=== PATIENT | female | born 1960 | race Caucasian/White ===

== ENCOUNTER 2021-03-15 14:03 | Emergency (ER) | payer BC ==
[~2021-03-15] VITALS: Ht 165.1 cm; Wt 81.6 kg
[2021-03-15 14:12] VITALS: BP 165/81
--- NOTE | 2021-03-15 14:21 | NUR ---
ARRIVAL PATIENT ARRIVED TO ED4 VIA W/C, C/O DIZZINESS AND NAUSEA, STATES SHE FEELS LIKE SHE IS ABOUT TO PASS OUT, DID EAT SOME ONIONS TODAY WHICH SHE HAS AN ALLERGY TO, WAS BROUGHT TO THE ED FOR EVAL, VITAL SIGNS OBTAINED AND DOCTOR NOTIFIED OF PATIENT'S ARRIVAL.
[2021-03-15] MEDS ORDERED: NS 1000ML 1,000 ML STA (14:23)
[2021-03-15] MEDS ORDERED: ZOFRAN ONE (14:37)
[2021-03-15] MEDS ORDERED: NS 1000ML 1,000 ML ONE (14:37)
[2021-03-15 14:43] LABS: BASOPHIL # 0.1 10^3/uL (0.0-0.1); EOSINOPHIL # 0.2 10^3/uL (0.0-0.2); LYMPHOCYTES # 2.67 10^3/uL1 (1.0-4.8); LYMPHOCYTES % 36.8 % (24.0-44.0); MEAN CORP HGB 29.3 pg (26-34); MONOCYTES # 0.5 10^3/uL (0.3-0.8); MONOCYTES % 6.2 % (5.0-12.0); NEUTROPHIL # 3.8 10^3/uL (1.8-7.7); NEUTROPHILS % 52.9 % (41.0-85.0); PLATELET COUNT 294 10^3/uL (150-400); RED CELL DISTRIBUTION WIDTH 13.2 % (11.5-14.5)
[2021-03-15] MEDS ORDERED: ZOFRAN IV PRN (15:00)
[2021-03-15 15:01] VITALS: BP 172/91
[2021-03-15 15:05] LABS: ALANINE AMINOTRANSFERASE(ML) 39 U/L (12-78); ALKALINE PHOSPHATASE 80 U/L (50-136); ASPARTATE AMINO TRANSFERASE 18 U/L (0-35); CALCIUM 9.4 mg/dL (8.4-10.5); CARBON DIOXIDE 26.9 mmol/L (20.0-32); GLUCOSE 117 mg/dL (70-110)
--- NOTE | 2021-03-15 15:32 | ER.PDOC ---
General Chief Complaint: General Complaint Stated Complaint: DIZZY/WEAK TRAVEL OUT OF US: No Time seen by MD: 14:10 Source: patient Exam Limitations: no limitations History of Present Illness Initial Comments 60 Y F had a near syncope episode while seated, no CP or palpitations during episode, she did feel cold and nauseous, no recent illness, has never happened before, feels better now but slightly nauseous Allergies: Coded Allergies: Penicillins (Verified Allergy, Unknown, ., 03/15/21) Sulfa (Sulfonamide Antibiotics) (Verified Allergy, Unknown, ., 03/15/21) adhesive tape (Verified Allergy, Unknown, 03/15/21) aspirin (Verified Allergy, Unknown, 03/15/21) butorphanol (Verified Allergy, Unknown, 03/15/21) codeine (Verified Allergy, Unknown, 03/15/21) cyclobenzaprine (Verified Allergy, Unknown, 03/15/21) divalproex sodium (Verified Allergy, Unknown, 03/15/21) hydrocodone (Verified Allergy, Unknown, 03/15/21) hydromorphone (Verified Allergy, Unknown, 03/15/21) iodine (Verified Allergy, Unknown, 03/15/21) latex (Verified Allergy, Unknown, 03/15/21) meperidine (Verified Allergy, Unknown, 03/15/21) morphine (Verified Allergy, Unknown, 03/15/21) nalbuphine (Verified Allergy, Unknown, 03/15/21) onion (Verified Allergy, Unknown, 03/15/21) shrimp (Verified Allergy, Unknown, 03/15/21) strawberry (Verified Allergy, Unknown, 03/15/21) Uncoded Allergies: BAND AIDS (Allergy, Unknown, ., 03/15/21) Past Medical History Medical History: no pertinent history Surgical History: bladder suspension, cholecystectomy, hysterectomy, tonsillectomy Social History Alcohol Use: none Drug Use: none Review of Systems All Other Systems: Reviewed and Negative Physical Exam General Appearance: No Apparent Distress EENT: nml ENT inspection, other (dry oral mucosa) Respiratory: no respiratory distress CVS: reg rate & rhythm Gastrointestinal: Soft Back: Normal Inspection Extremities: Normal Inspection Neurologic/Psychiatric: No Motor/Sensory Deficits Skin: Normal Color Lymphatic: No Adenopathy Results/Orders Results/Orders Orders - REBECCA BOSE MD Cbc With Auto Diff (03/15/21 14:23) Comprehensive Metabolic Panel (03/15/21 14:23) Troponin I (03/15/21 14:23) PT (03/15/21 14:23) 0.9 % Sodium Chloride (Ns 1000ml) (03/15/21 14:23) Ondansetron Hcl/Pf (Zofran) (03/15/21 15:00) 0.9 % Sodium Chloride (Ns 1000ml) (03/15/21 14:37) Ondansetron Hcl/Pf (Zofran) (03/15/21 14:37) Vital Signs Date Time Temp Pulse Resp B/P (MAP) Pulse Ox O2 Delivery O2 Flow Rate FiO2 03/15/21 15:01 97.9 77 18 172/91 (118) 99 Room Air 03/15/21 14:12 97.9 75 18 03/15/21 14:12 97.9 75 18 165/81 (109) 99 Room Air 03/15/21 14:12 97.9 75 18 99 Administered Medications Medications (Trade) Dose Ordered Sig/Vale Route PRN Reason Start Time Stop Time Status Last Admin Dose Admin Ondansetron HCl (Zofran) 4 mg Q4H PRN IV NAUSEA / VOMITING 03/15/21 15:00 04/14/21 14:59 03/15/21 14:41 4 MG Sodium Chloride 1,000 ml @ 0 mls/hr Q0M STAT IV 03/15/21 14:23 03/15/21 14:25 DC 03/15/21 14:41 1,200 MLS/HR Laboratory Tests Test 03/15/21 14:38 White Blood Count 7.3 10^3/uL (4.5-11.0) Red Blood Count 4.92 10^6/uL (4.00-5.20) Hemoglobin 14.4 g/dL (12.0-15.0) Hematocrit 43.6 % (36.0-46.0) Mean Corpuscular Volume 88.6 fL (78-100) Mean Corpuscular Hemoglobin 29.3 pg (26-34) Mean Corpuscular Hemoglobin Concent 33.0 g/dL (33-36.5) Red Cell Distribution Width 13.2 % (11.5-14.5) Platelet Count 294 10^3/uL (150-400) Mean Platelet Volume 9.8 fL (7.8-11.0) Neutrophils (%) (Auto) 52.9 % (41.0-85.0) Lymphocytes (%) (Auto) 36.8 % (24.0-44.0) Monocytes (%) (Auto) 6.2 % (5.0-12.0) Neutrophils # (Auto) 3.8 10^3/uL (1.8-7.7) Lymphocytes # (Auto) 2.67 10^3/uL1 (1.0-4.8) Monocytes # (Auto) 0.5 10^3/uL (0.3-0.8) Absolute Immature Granulocyte (auto 0.01 10^3 u/L (0-2) Absolute Eosinophils (auto) 0.2 10^3/uL (0.0-0.2) Immature Granulocytes % 0.10 % (0.00-0.50) Eosinophils % 3.0 % (0.0-5.0) Basophils % 1.0 % (0.0-0.2) H Basophils # 0.1 10^3/uL (0.0-0.1) Prothrombin Time 10.2 SEC (9.6-12.0) Prothrombin Time INR (Non-Therap) 0.9 Sodium Level 139 mmol/L (132-145) Potassium Level 3.4 mmol/L (3.6-5.2) L Chloride Level 102.0 mmol/L (96-109) Carbon Dioxide Level 26.9 mmol/L (20.0-32) Anion Gap 13.5 Blood Urea Nitrogen 19 mg/dL (7-18) H Creatinine 1.06 mg/dL (0.59-1.40) Estimated GFR () 63.6 (>/=60) Est GFR (CKD-EPI)(Non-Afr [place]) 52.5 (>/=60) BUN/Creatinine Ratio 17.0 Glucose Level 117 mg/dL (70-110) H Calcium Level 9.4 mg/dL (8.4-10.5) Total Bilirubin 0.5 mg/dL (0.2-1.0) Aspartate Amino Transferase (AST) 18 U/L (0-35) Alanine Aminotransferase (ALT) 39 U/L (12-78) Alkaline Phosphatase 80 U/L (50-136) Troponin I < 0.02 ng/mL (0.00-0.05) Total Protein 8.0 g/dL (6.4-8.2) Albumin 4.6 g/dL (3.4-5.0) Globulin 3.4 Albumin/Globulin Ratio 1.352 ER DEPART Departure Time of Disposition: 15:31 Disposition: 01 HOME / SELF CARE / HOMELESS Impression: Primary Impression: Near syncope Condition: Improved Referrals: AUTUMN FUENTES SENIOR CONSTRUCTION ESTIMATOR (PCP) PRIMARY CARE PROVIDER Duration or Time Spent with Pa: Alexm REBECCA BOSE MD Mar 15, 2021 15:32
[2021-03-15 15:38] VITALS: BP 172/91
== END 2021-03-15 15:43 | disposition home or self-care (01) ==
LOC: ER 14:03
DX: R55 Syncope and collapse (principal); Z79.899 Other long term (current) drug therapy; Z88.0 Allergy status to penicillin; Z88.2 Allergy status to sulfonamides; Z88.5 Allergy status to narcotic agent; Z88.6 Allergy status to analgesic agent; Z88.8 Allergy status to other drugs, medicaments and biological substances; Z90.49 Acquired absence of other specified parts of digestive tract; Z90.710 Acquired absence of both cervix and uterus
CPT/HCPCS: 36415; 80053; 84484; 85025; 85610; 96361; 96374; 99284; J2405; J7030

== ENCOUNTER 2022-10-29 08:06 | Emergency (ER) | payer BC ==
[~2022-10-29] VITALS: Ht 165.1 cm; Wt 83.9 kg
[2022-10-29 08:06] VITALS: BP 191/106
--- NOTE | 2022-10-29 08:06 | NUR ---
ARRIVAL PATIENT ARRIVED TO ED4 VIA W/C, C/O POSSIBLE HYPERTENSION TODAY, PATIENT STATES SHE HAS NOT FELT GOOD SINCE GETTING UP THIS MORNING, HAD HER BLOOD PRESSURE CHECKED BY ICU STAFF AND IT WAS INCREASED, WAS BROUGHT TO THE ED FOR EVAL, VITAL SIGNS TAKEN AND DOCTOR TO THE ROOM TO SEE PATIENT.
--- NOTE | 2022-10-29 08:33 | ER.PDOC ---
General Chief Complaint: General Complaint Stated Complaint: HIGH BP TRAVEL OUT OF US: No Time seen by MD: 08:32 Source: patient Exam Limitations: no limitations History of Present Illness Initial Comments High blood pressure and dizziness this morning. No chest pain or shortness of breath. She is also having exacerbation of her chronic neck pain. Severity: moderate Associated Symptoms: denies symptoms Allergies: Coded Allergies: Penicillins (Verified Allergy, Unknown, ., 03/15/21) Sulfa (Sulfonamide Antibiotics) (Verified Allergy, Unknown, ., 03/15/21) adhesive tape (Verified Allergy, Unknown, 03/15/21) aspirin (Verified Allergy, Unknown, 03/15/21) butorphanol (Verified Allergy, Unknown, 03/15/21) codeine (Verified Allergy, Unknown, 03/15/21) cyclobenzaprine (Verified Allergy, Unknown, 03/15/21) divalproex sodium (Verified Allergy, Unknown, 03/15/21) hydrocodone (Verified Allergy, Unknown, 03/15/21) hydromorphone (Verified Allergy, Unknown, 03/15/21) iodine (Verified Allergy, Unknown, 03/15/21) latex (Verified Allergy, Unknown, 03/15/21) meperidine (Verified Allergy, Unknown, 03/15/21) morphine (Verified Allergy, Unknown, 03/15/21) nalbuphine (Verified Allergy, Unknown, 03/15/21) onion (Verified Allergy, Unknown, 03/15/21) shrimp (Verified Allergy, Unknown, 03/15/21) strawberry (Verified Allergy, Unknown, 03/15/21) Uncoded Allergies: BAND AIDS (Allergy, Unknown, ., 03/15/21) Past Medical History Medical History: no pertinent history Surgical History: appendectomy, bladder suspension, cholecystectomy, , hysterectomy, other Family History Significant Family History: no pertinent family hx Social History Smoking: non-smoker Alcohol Use: occassionally Drug Use: none Review of Systems Constitutional: no symptoms reported EENTM: see HPI Respiratory: no symptoms reported Cardiovascular: see HPI Gastrointestinal: no symptoms reported Musculoskeletal: see HPI All Other Systems: Reviewed and Negative Physical Exam General Appearance: No Apparent Distress, WD/WN Neck: Supple, Normal Inspection, Other (Paraspinous muscle tenderness) Respiratory: chest non-tender, lungs clear, normal breath sounds, no respirator y distress, no accessory muscle use CVS: reg rate & rhythm, no murmur, no gallop, pulses nml, nml capillary refill Gastrointestinal: Normal Bowel Sounds, No Organomegaly, No Pulsatile Mass, Non Tender Back: Normal Inspection, No CVA Tenderness Extremities: Normal Range of Motion, Non-Tender, Normal Inspection, No Pedal Edema Neurologic/Psychiatric: gynaecological oncologist II-XII NML as Tested, No Motor/Sensory Deficits, Alert, Normal Mood/Affect, Oriented x 3 Skin: Normal Color Lymphatic: No Adenopathy Results/Orders Results/Orders Orders - EMILEE NELSON MD Cbc With Auto Diff (10/29/22 08:28) Comprehensive Metabolic Panel (10/29/22 08:28) Xr Chest 1v (10/29/22 08:28) Ct Head Wo Contrast (10/29/22 08:28) Urinalysis (10/29/22 08:28) EKG (10/29/22 08:28) Troponin I High Sensitivity (10/29/22 08:28) Ketorolac Tromethamine (Toradol) (10/29/22 08:56) Ketorolac Tromethamine (Toradol) (10/29/22 08:56) Vital Signs Date Time Temp Pulse Resp B/P (MAP) Pulse Ox O2 Delivery O2 Flow Rate FiO2 10/29/22 09:48 97.9 78 18 145/88 (107) 95 Room Air* 0 21 10/29/22 08:59 97.9 78 18 165/96 (119) 95 Room Air* 0 21 10/29/22 08:06 97.9 77 18 10/29/22 08:06 97.9 77 18 191/106 (134) 95 Room Air* 0 21 10/29/22 08:06 97.9 77 18 95 Administered Medications Medications (Trade) Dose Ordered Sig/Vale Route PRN Reason Start Time Stop Time Status Last Admin Dose Admin Ketorolac Tromethamine (Toradol) 30 mg STAT STAT IV 10/29/22 08:56 10/29/22 08:57 DC 10/29/22 09:02 30 MG Laboratory Tests Test 10/29/22 08:15 10/29/22 08:49 Urine Collection Type RANDOM Urine Color YELLOW Urine Appearance CLEAR Urine Bilirubin NEGATIVE (NEGATIVE) Urine Ketones NEGATIVE (NEGATIVE) Urine Specific [place] 1.015 (1.005-1.030) Urine pH 7.0 (4.5-8.0) Urine Protein NEGATIVE (NEGATIVE) Urine Urobilinogen 0.2 E.U./dL (0.2) Urine Nitrate NEGATIVE (NEGATIVE) Urine Leukocyte Esterase NEGATIVE (NEGATIVE) Urine Glucose (Auto)(UA) NEGATIVE (NEGATIVE) Urine Blood NEGATIVE (NEGATIVE) White Blood Count 6.4 10^3/uL (4.5-11.0) Red Blood Count 5.06 10^6/uL (4.00-5.20) Hemoglobin 15.0 g/dL (12.0-15.0) Hematocrit 45.0 % (36.0-46.0) Mean Corpuscular Volume 88.9 fL (78-100) Mean Corpuscular Hemoglobin 29.6 pg (26-34) Mean Corpuscular Hemoglobin Concent 33.3 g/dL (33-36.5) Red Cell Distribution Width 13.3 % (11.5-14.5) Platelet Count 290 10^3/uL (150-400) Mean Platelet Volume 10.0 fL (7.8-11.0) Neutrophils (%) (Auto) 64.4 % (41.0-85.0) Lymphocytes (%) (Auto) 26.1 % (24.0-44.0) Monocytes (%) (Auto) 6.3 % (5.0-12.0) Neutrophils # (Auto) 4.1 10^3/uL (1.8-7.7) Lymphocytes # (Auto) 1.67 10^3/uL1 (1.0-4.8) Monocytes # (Auto) 0.4 10^3/uL (0.3-0.8) Absolute Immature Granulocyte (auto 0.01 10^3 u/L (0-2) Absolute Eosinophils (auto) 0.2 10^3/uL (0.0-0.2) Immature Granulocytes % 0.20 % (0.00-0.50) Eosinophils % 2.7 % (0.0-5.0) Basophils % 0.3 % (0.0-0.2) H Basophils # 0.0 10^3/uL (0.0-0.1) Sodium Level 142 mmol/L (132-145) Potassium Level 4.4 mmol/L (3.6-5.2) Chloride Level 104.0 mmol/L (96-109) Carbon Dioxide Level 26.3 mmol/L (20.0-32) Anion Gap 16.1 Blood Urea Nitrogen 10 mg/dL (7-18) Creatinine 0.99 mg/dL (0.59-1.40) Estimated GFR () 68.3 (>/=60) Est GFR (CKD-EPI)(Non-Afr [place]an) 56.5 (>/=60) BUN/Creatinine Ratio 10.0 (10.0-20.0) Glucose Level 162 mg/dL (70-110) H Calcium Level 9.3 mg/dL (8.4-10.5) Total Bilirubin 0.5 mg/dL (0.2-1.0) Aspartate Amino Transferase (AST) 27 U/L (0-35) Alanine Aminotransferase (ALT) 41 U/L (12-78) Alkaline Phosphatase 81 U/L (50-136) Troponin I High Sensitivity < 4 ng/L (0-50) Total Protein 7.3 g/dL (6.4-8.2) Albumin 4.3 g/dL (3.4-5.0) Globulin 3.0 Albumin/Globulin Ratio 1.[address] head: No acute intracranial abnormality Chest x-ray: Nothing acute CBC and chemistry are unremarkable. Troponin is normal. Patient received Toradol for her chronic neck pain. Her blood pressure significantly improved up to 140s systolic. She is feeling better to go home. EKG/XRAY/CT/US EKG: NSR EKG Comments: HR 68, normal P axis ER DEPART Departure Time of Disposition: 10:02 Disposition: 01 HOME / SELF CARE / HOMELESS Impression: Primary Impression: Elevated blood pressure reading Additional Impressions: Dizziness and giddiness Neck pain Condition: Improved Referrals: SEVEN FUENTES DO (PCP) PRIMARY CARE PROVIDER Additional Instructions: Keep a blood pressure diary Ibuprofen Follow-up with your PCP in 2 to 3 days Return to ED if worsening or concerns Duration or Time Spent with Pa: 45 min Problem Qualifiers EMILEE NESLON MD October 29, 2022 08:33
--- NOTE | 2022-10-29 08:34 | PCM.EKG ---
[facility] Test Date: 2022-10-29 Pat Name: JAMAL ADAME Department: ER Room: Gender: Female Product Director: HEYDI : 1960 Requested By: EMILEE NELSON Order Number: [id number] Reading MD: Emilee NELSON Measurements Intervals [place] Rate: 68 P: 29 MI: 166 QRS: 58 QRSD: 78 T: 36 QT: 416 QTc: 443 Interpretive Statements Sinus rhythm Low voltage, precordial leads No previous ECG available for comparison Electronically Signed On 11-01-2022 08:21:07 CDT by Emilee NELSON Please click the below link to view image of tracing.
--- NOTE | 2022-10-29 08:50 | DIREP ---
PROCEDURE:CHEST 1 VIEW COMPARISON:None. INDICATIONS:Dizziness FINDINGS: LUNGS/PLEURA:No significant pulmonary parenchymal abnormalities. No effusions. No pneumothorax. VASCULATURE:Normal. Unremarkable pulmonary vasculature. CARDIAC:Normal. No cardiac silhouette abnormality or cardiomegaly. MEDIASTINUM:Normal. No visible mass or adenopathy. BONES:Normal. No fracture or visible bony lesion. OTHER:Negative. CONCLUSION:Normal examination. Dictated by: Javi Krishnan M.D. on 10/29/2022 at 08:49 AM
[2022-10-29 08:55] LABS: BASOPHIL % 0.3 % (0.0-0.2); EOSINOPHIL # 0.2 10^3/uL (0.0-0.2); EOSINOPHIL % 2.7 % (0.0-5.0); LYMPHOCYTES # 1.67 10^3/uL1 (1.0-4.8); LYMPHOCYTES % 26.1 % (24.0-44.0); MEAN CORP HGB 29.6 pg (26-34); MONOCYTES # 0.4 10^3/uL (0.3-0.8); MONOCYTES % 6.3 % (5.0-12.0); NEUTROPHIL # 4.1 10^3/uL (1.8-7.7); NEUTROPHILS % 64.4 % (41.0-85.0); RED CELL DISTRIBUTION WIDTH 13.3 % (11.5-14.5)
[2022-10-29] MEDS ORDERED: TORADOL ONE (08:56)
[2022-10-29] MEDS ORDERED: TORADOL IV STA (08:56)
[2022-10-29 08:57] LABS: BILIRUBIN,URINE NEGATIVE (NEGATIVE); UROBILINOGEN,URINE 0.2 E.U./dL (0.2)
[2022-10-29 08:59] VITALS: BP 165/96
--- NOTE | 2022-10-29 09:04 | DIREP ---
PROCEDURE:CT HEAD OR BRAIN W/O CONTRAST COMPARISON:None. INDICATIONS:Dizziness TECHNIQUE:CT images were created without intravenous contrast. FINDINGS: VENTRICLES: The ventricles are normal in size and configuration. CEREBRUM: Normal cerebral morphology with appropriate saleh white matter differentiation. CEREBELLUM: Negative. BRAINSTEM: Negative. BASAL CISTERNS: Negative. SKULL: Normal. No fractures. No lytic or blastic lesion of bone. SINUSES: Normal. OTHER: No acute intracranial hemorrhage, large territorial infarct, CT evidence of acute infarct, abnormal extra-axial fluid collection, or intracranial mass effect. CONCLUSION: Normal noncontrast CT scan of the brain. Dictated by: Collin Carreon M.D. on 10/29/2022 at 09:02 AM
[2022-10-29 09:43] LABS: CARBON DIOXIDE 26.3 mmol/L (20.0-32); GLUCOSE 162 mg/dL (70-110)
[2022-10-29 09:48] VITALS: BP 145/88
== END 2022-10-29 10:15 | disposition home or self-care (01) ==
LOC: ER 08:06
DX: R03.0 Elevated blood-pressure reading, without diagnosis of hypertension (principal); R42 Dizziness and giddiness; M54.2 Cervicalgia; G89.29 Other chronic pain; Z90.49 Acquired absence of other specified parts of digestive tract; Z90.710 Acquired absence of both cervix and uterus; Z88.0 Allergy status to penicillin; Z88.2 Allergy status to sulfonamides; Z88.5 Allergy status to narcotic agent; Z88.6 Allergy status to analgesic agent; Z88.8 Allergy status to other drugs, medicaments and biological substances; Z91.040 Latex allergy status
CPT/HCPCS: 99284; 96374; 70450; 71045; 81003; 80053; 85025; 36415; 84484; 93005; J1885

== ENCOUNTER → 2022-12-24 | Outpatient (CLI) | payer BC ==
--- NOTE | 2022-12-24 13:33 | DIREP ---
PROCEDURE:Digital Breast Tomosynthesis Screening TECHNIQUE:MLO and CC digital tomosynthesis images of each breast are provided. Computer Assisted Detection (CAD) was utilized. COMPARISON:[facility], diagnostic bilateral mammograms, 02/07/2014.. INDICATIONS:SCREENING BREAST COMPOSITION:Scattered areas fibroglandular density. FINDINGS:There are no grouped microcalcifications, masses, or architectural distortions to suggest malignancy. There is no significant change as compared with the previous examination(s). There is a biopsy marker in the left breast. IMPRESSION:No mammographic evidence of malignancy. RECOMMENDATIONS:Annual Screening Mammography per [employer] guidelines. OVERALL FINAL ASSESSMENT:BI-RADS 1 - Negative Mammogram Note: This facility participates in a mammography screening patient reminder system. Dictated by: Collin Carreon M.D. on 12/24/2022 at 01:24 PM
== END | disposition home or self-care (01) ==
LOC: RAD 09:59
PROVIDERS: ATTEND Family Medicine
DX: Z12.31 Encounter for screening mammogram for malignant neoplasm of breast (principal)
CPT/HCPCS: 77063; 77067